=== PATIENT | male | born 1950 | race Two or more races ===

== ENCOUNTER 2024-06-09 12:12 | Inpatient (IN) | payer MEDICARE, OTHER ==
[~2024-06-09] VITALS: Ht 167.6 cm; Wt 56.9 kg
[2024-06-09 12:46] LABS: BASOPHILS # (AUTO) 0.1 K/uL (0.0-0.2); BASOPHILS % (AUTO) 0.6 % (0.0-2.0); EOSINOPHILS % (AUTO) 0.3 % (0.0-6.0); HEMATOCRIT 41 % (39-51); HEMOGLOBIN 13.5 g/dL (13.5-17.5); LYMPHOCYTES # (AUTO) 0.5 K/uL (0.8-4.8); LYMPHOCYTES % (AUTO) 3.5 % (20.0-44.0); MEAN CORPUSCULAR HEMOGLOBIN 30 PG (26.0-33.0); MEAN CORPUSCULAR HGB CONC 33 g/dl (31.0-36.0); MEAN CORPUSCULAR VOLUME 90 fL (80-96); MONOCYTES # (AUTO) 0.6 K/uL (0.1-1.30); MONOCYTES % (AUTO) 4.3 % (2.0-12.0); NEUTROPHILS # (AUTO) 12.7 K/uL (1.8-8.9); NEUTROPHILS % (AUTO) 91.3 % (43.0-81.0); PLATELET COUNT (AUTO) 283 K/uL (150-450); RED BLOOD CELL COUNT(AUTO) 4.56 MIL/uL (4.5-6.0); RED CELL DISTRIBUTION WIDTH 13.8 % (11.5-15.0); WHITE BLOOD COUNT (AUTO) 13.9 K/uL (4.3-11.0)
[2024-06-09 13:07] LABS: CALCIUM, SERUM 10.6 mg/dL (8.5-10.1); CARBON DIOXIDE 24 mmol/L (21-32); CHLORIDE 97 mmol/L (98-107); CREATININE 1.3 mg/dL (0.6-1.3); GLUCOSE 131 mg/dL (74-106); POTASSIUM 4.6 mmol/L (3.5-5.1); SODIUM SERUM 135 mmol/L (136-145); UREA NITROGEN, BLOOD 21 mg/dL (7-18)
[2024-06-09 16:00] VITALS: BP 169/92; TEMP 98.1; O2SAT 98
[2024-06-09] MEDS ORDERED: MAG HYDROX/AL HYDROX/SIMETH 30 ML UDC PO PRN (16:00)
[2024-06-09] MEDS ORDERED: HYDROCODONE/APAP 5/325MG TABLET PO PRN (16:00)
[2024-06-09] MEDS ORDERED: ONDANSETRON HCL/PF 4 MG/2 ML VIAL IVP PRN (16:00)
[2024-06-09] MEDS ORDERED: HYDROCODONE/APAP 10/325MG TABLET PO PRN (16:00)
[2024-06-09] MEDS ORDERED: Z GUARD REMEDY 4 OZ OINT TP PRN (16:00)
[2024-06-09] MEDS ORDERED: MAGNESIUM HYDROXIDE 30 ML UDC PO PRN (16:00)
[2024-06-09] MEDS ORDERED: ACETAMINOPHEN 325 MG TABLET PO PRN (16:00)
[2024-06-09] MEDS ORDERED: CHOL500062 PO (16:12)
[2024-06-09] MEDS ORDERED: TACR1CAP7 PO (16:12)
[2024-06-09] MEDS ORDERED: LORA10TA7 PO (16:12)
[2024-06-09] MEDS ORDERED: DILT180C93 PO (16:12)
[2024-06-09] MEDS ORDERED: LOVA10TA PO (16:12)
[2024-06-09] MEDS ORDERED: DOCU100C36 PO (16:12)
[2024-06-09] MEDS ORDERED: PANT40TA49 PO (16:12)
[2024-06-09] MEDS ORDERED: FLUC150T5 PO (16:12)
[2024-06-09] MEDS ORDERED: [UNRECOGNIZED DRUG - OTHER] PO (16:12)
[2024-06-09] MEDS ORDERED: SODI650T PO (16:12)
[2024-06-09] MEDS ORDERED: PRED5TAB PO (16:12)
[2024-06-09] MEDS ORDERED: AMLO-212 PO (16:12)
[2024-06-09] MEDS ORDERED: CARV25TA2 PO (16:12)
[2024-06-09] MEDS ORDERED: IPRATROPIUM NEB FS 0.5 MG/2.5 ML AMPUL.NEB NEB PRN (17:00)
[2024-06-09] MEDS ORDERED: LORATADINE 10 MG TABLET PO PRN (17:00)
[2024-06-09] MEDS ORDERED: ALBUTEROL FS 2.5 MG/0.5 ML VIAL.NEB NEB PRN (17:00)
[2024-06-09] MEDS ORDERED: TACROLIMUS ANHYDROUS 1 MG CAPSULE PO SCH (17:00)
[2024-06-09 18:00] VITALS: BP 133/56; TEMP 96.8; O2SAT 97
[2024-06-09] MEDS: SODIUM BICARBONATE 650 MG TABLET PO SCH (18:26)
[2024-06-09] MEDS: CARVEDILOL 12.5 MG TABLET PO SCH (18:27)
[2024-06-09] MEDS: AMLODIPINE BESYLATE 5 MG TABLET PO SCH (18:28)
[2024-06-09] MEDS: ENOXAPARIN SODIUM 40 MG/0.4 ML DISP.SYRIN SQ SCH (18:29)
[2024-06-09 20:00] VITALS: BP 132/62; TEMP 97.9; O2SAT 98
[2024-06-09] MEDS: IV D5/0.45 NACL 1,000 ML IV PRN (20:37)
[2024-06-09] MEDS: DOCUSATE SODIUM 100 MG CAPSULE PO SCH (21:16)
[2024-06-09] MEDS: ATORVASTATIN 10 MG TABLET PO SCH (21:16)
[2024-06-09] MEDS ORDERED: ZOLPIDEM TARTRATE 5 MG TABLET PO PRN (22:00)
[2024-06-10] VITALS: BP 125/59; TEMP 97.7; O2SAT 97
[2024-06-10 04:00] VITALS: BP 126/59; TEMP 97.7; O2SAT 95
[2024-06-10 07:50] LABS: BASOPHILS # (AUTO) 0.1 K/uL (0.0-0.2); BASOPHILS % (AUTO) 0.6 % (0.0-2.0); EOSINOPHILS # (AUTO) 0.2 K/uL (0.0-0.7); EOSINOPHILS % (AUTO) 2.3 % (0.0-6.0); HEMATOCRIT 38 % (39-51); HEMOGLOBIN 12.6 g/dL (13.5-17.5); LYMPHOCYTES # (AUTO) 0.7 K/uL (0.8-4.8); LYMPHOCYTES % (AUTO) 7.4 % (20.0-44.0); MEAN CORPUSCULAR HEMOGLOBIN 29 PG (26.0-33.0); MEAN CORPUSCULAR HGB CONC 33 g/dl (31.0-36.0); MEAN CORPUSCULAR VOLUME 88 fL (80-96); MONOCYTES # (AUTO) 1.1 K/uL (0.1-1.30); MONOCYTES % (AUTO) 12.4 % (2.0-12.0); NEUTROPHILS % (AUTO) 77.3 % (43.0-81.0); PLATELET COUNT (AUTO) 269 K/uL (150-450); RED BLOOD CELL COUNT(AUTO) 4.33 MIL/uL (4.5-6.0); RED CELL DISTRIBUTION WIDTH 13.4 % (11.5-15.0); WHITE BLOOD COUNT (AUTO) 9.1 K/uL (4.3-11.0)
[2024-06-10 08:00] VITALS: BP_SYST 129; BP_DIAS 60; BP_DIAS 69; TEMP 97.6; O2SAT 96
[2024-06-10 08:18] LABS: CALCIUM, SERUM 9.7 mg/dL (8.5-10.1); CARBON DIOXIDE 31 mmol/L (21-32); CHLORIDE 100 mmol/L (98-107); GLUCOSE 105 mg/dL (74-106); MAGNESIUM 1.6 mg/dL (1.8-2.4); PHOSPHORUS 3.2 mg/dL (2.5-4.9); POTASSIUM 4.1 mmol/L (3.5-5.1); SODIUM SERUM 135 mmol/L (136-145); UREA NITROGEN, BLOOD 18 mg/dL (7-18)
[2024-06-10] MEDS: PANTOPRAZOLE 40 MG TABLET.DR PO SCH (08:18)
[2024-06-10] MEDS: TACROLIMUS ANHYDROUS 0.5 MG CAPSULE PO SCH (08:41)
[2024-06-10] MEDS: CHOLECALCIFEROL 1,000 UNIT TABLET (VIT D3) PO SCH (08:42)
[2024-06-10] MEDS: predniSONE 5 MG TABLET PO SCH (08:42)
[2024-06-10] MEDS: DILTIAZEM HCL CD 180 MG PO SCH (08:42)
[2024-06-10] MEDS ORDERED: PANTOPRAZOLE 40 MG TABLET.DR PO SCH (09:00)
[2024-06-10] MEDS ORDERED: FLUCONAZOLE (100 MG) 100 MG TABLET PO SCH (09:00)
[2024-06-10 09:02] LABS: CHOLESTEROL 175 mg/dL (<200); HDL CHOLESTEROL 63 mg/dL (40-60); LDL 96 mg/dL (0-99); TRIGLYCERIDES 87 mg/dL (30-150)
[2024-06-10] MEDS: MAGNESIUM OXIDE 400 MG TABLET PO ONE (09:35)
[2024-06-10 12:00] VITALS: BP 126/57; TEMP 98.2; O2SAT 97
[2024-06-10] MEDS: IV NS 0.9% 1,000 ML IV ONE (13:16)
[2024-06-10 16:00] VITALS: BP 126/52; TEMP 97.7; O2SAT 96
[2024-06-10 20:00] VITALS: BP 134/56; TEMP 98.2; O2SAT 97
[2024-06-11] VITALS: BP 116/61; TEMP 98.4; O2SAT 95
[2024-06-11 04:00] VITALS: BP 130/59; TEMP 98.2; O2SAT 97
[2024-06-11 07:53] LABS: BASOPHILS % (AUTO) 0.3 % (0.0-2.0); EOSINOPHILS # (AUTO) 0.3 K/uL (0.0-0.7); EOSINOPHILS % (AUTO) 2.4 % (0.0-6.0); HEMATOCRIT 39 % (39-51); HEMOGLOBIN 12.6 g/dL (13.5-17.5); LYMPHOCYTES # (AUTO) 0.6 K/uL (0.8-4.8); LYMPHOCYTES % (AUTO) 5.4 % (20.0-44.0); MEAN CORPUSCULAR HEMOGLOBIN 29 PG (26.0-33.0); MEAN CORPUSCULAR HGB CONC 32 g/dl (31.0-36.0); MEAN CORPUSCULAR VOLUME 88 fL (80-96); MONOCYTES # (AUTO) 1.2 K/uL (0.1-1.30); MONOCYTES % (AUTO) 11.8 % (2.0-12.0); NEUTROPHILS # (AUTO) 8.3 K/uL (1.8-8.9); NEUTROPHILS % (AUTO) 80.1 % (43.0-81.0); PLATELET COUNT (AUTO) 276 K/uL (150-450); RED BLOOD CELL COUNT(AUTO) 4.43 MIL/uL (4.5-6.0); RED CELL DISTRIBUTION WIDTH 13.6 % (11.5-15.0); WHITE BLOOD COUNT (AUTO) 10.4 K/uL (4.3-11.0)
[2024-06-11 08:00] VITALS: BP 127/58; TEMP 97.9; O2SAT 97
[2024-06-11 08:07] LABS: ALANINE AMINOTRANSFERASE 13 U/L (12-78); ALBUMIN 2.9 g/dL (3.4-5.0); ALKALINE PHOSPHATASE 70 U/L (46-116); ASPARTATE AMINOTRANSFERASE 14 U/L (15-37); BILIRUBIN,TOTAL 0.4 mg/dL (0.2-1.0); CALCIUM, SERUM 9.1 mg/dL (8.5-10.1); CARBON DIOXIDE 26 mmol/L (21-32); CHLORIDE 101 mmol/L (98-107); GLUCOSE 94 mg/dL (74-106); MAGNESIUM 1.5 mg/dL (1.8-2.4); POTASSIUM 3.9 mmol/L (3.5-5.1); SODIUM SERUM 135 mmol/L (136-145); TOTAL PROTEIN, SERUM 7.1 g/dL (6.4-8.2); UREA NITROGEN, BLOOD 12 mg/dL (7-18)
[2024-06-11] MEDS: MAGNESIUM OXIDE 400 MG TABLET PO ONE (09:37)
[2024-06-11 12:00] VITALS: BP 133/67; TEMP 98.2; O2SAT 99
[2024-06-11 16:00] VITALS: BP 122/56; TEMP 98.1; O2SAT 97
[2024-06-11 20:00] VITALS: BP 129/55; TEMP 98.8; O2SAT 100
[2024-06-12] VITALS: BP 125/60; TEMP 98.4; O2SAT 96
[2024-06-12 04:00] VITALS: BP 128/58; TEMP 98.4; O2SAT 95
[2024-06-12 08:00] VITALS: BP 132/60; TEMP 97.2; O2SAT 96
[2024-06-12 08:13] LABS: BASOPHILS # (AUTO) 0.1 K/uL (0.0-0.2); BASOPHILS % (AUTO) 1.1 % (0.0-2.0); EOSINOPHILS # (AUTO) 0.3 K/uL (0.0-0.7); EOSINOPHILS % (AUTO) 2.9 % (0.0-6.0); HEMATOCRIT 40 % (39-51); HEMOGLOBIN 13.1 g/dL (13.5-17.5); LYMPHOCYTES # (AUTO) 0.7 K/uL (0.8-4.8); LYMPHOCYTES % (AUTO) 6.4 % (20.0-44.0); MEAN CORPUSCULAR HEMOGLOBIN 29 PG (26.0-33.0); MEAN CORPUSCULAR HGB CONC 33 g/dl (31.0-36.0); MEAN CORPUSCULAR VOLUME 88 fL (80-96); MONOCYTES # (AUTO) 1.3 K/uL (0.1-1.30); MONOCYTES % (AUTO) 12.7 % (2.0-12.0); NEUTROPHILS # (AUTO) 7.9 K/uL (1.8-8.9); NEUTROPHILS % (AUTO) 76.9 % (43.0-81.0); PLATELET COUNT (AUTO) 259 K/uL (150-450); RED BLOOD CELL COUNT(AUTO) 4.56 MIL/uL (4.5-6.0); RED CELL DISTRIBUTION WIDTH 13.7 % (11.5-15.0); WHITE BLOOD COUNT (AUTO) 10.3 K/uL (4.3-11.0)
[2024-06-12 08:21] LABS: ALANINE AMINOTRANSFERASE 9 U/L (12-78); ALBUMIN 2.8 g/dL (3.4-5.0); ALKALINE PHOSPHATASE 75 U/L (46-116); ASPARTATE AMINOTRANSFERASE 13 U/L (15-37); BILIRUBIN,TOTAL 0.5 mg/dL (0.2-1.0); CARBON DIOXIDE 26 mmol/L (21-32); CHLORIDE 100 mmol/L (98-107); GLUCOSE 87 mg/dL (74-106); MAGNESIUM 1.8 mg/dL (1.8-2.4); PHOSPHORUS 3.4 mg/dL (2.5-4.9); POTASSIUM 3.9 mmol/L (3.5-5.1); SODIUM SERUM 134 mmol/L (136-145); TOTAL PROTEIN, SERUM 7.3 g/dL (6.4-8.2); UREA NITROGEN, BLOOD 12 mg/dL (7-18)
[2024-06-12 12:45] VITALS: BP 121/58; TEMP 97.9; O2SAT 94
[2024-06-12 16:45] VITALS: BP 141/60; TEMP 97.6; O2SAT 98
[2024-06-12 20:00] VITALS: BP 131/59; TEMP 98.4
[2024-06-13] VITALS: BP 131/57; TEMP 98.4; O2SAT 97
[2024-06-13 04:00] VITALS: BP 125/56; TEMP 98; O2SAT 94
[2024-06-13 08:00] VITALS: BP 120/68; TEMP 98.2; O2SAT 98
[2024-06-13 12:00] VITALS: BP 140/64; TEMP 97.7; O2SAT 97
[2024-06-13 16:20] VITALS: BP 134/54; TEMP 98.2; O2SAT 99
[2024-06-13 20:00] VITALS: BP 136/62; TEMP 97.9; O2SAT 96
[2024-06-14] VITALS: BP 133/63; TEMP 97.9; O2SAT 98
[2024-06-14 04:00] VITALS: BP 134/58; TEMP 98.4; O2SAT 95
[2024-06-14 08:00] VITALS: BP 135/61; TEMP 98.1; O2SAT 98
[2024-06-14 12:00] VITALS: BP 134/52; TEMP 97.9; O2SAT 97
[2024-06-14 16:00] VITALS: BP 130/56; TEMP 97.7; O2SAT 98
[2024-06-14 20:00] VITALS: BP 130/56; TEMP 97.9; O2SAT 94
[2024-06-15] VITALS: BP 132/58; TEMP 97.9; O2SAT 94
[2024-06-15 04:50] VITALS: BP 136/63; TEMP 98.1; O2SAT 96
[2024-06-15 08:00] VITALS: BP 137/63; TEMP 98.3; O2SAT 95
[2024-06-15 12:00] VITALS: BP 119/56; TEMP 97.8; O2SAT 95
[2024-06-15 15:29] LABS: ALBUMIN 2.9 g/dL (3.4-5.0); BILIRUBIN,DIRECT 0.1 mg/dL (0.0-0.2); BILIRUBIN,TOTAL 0.6 mg/dL (0.2-1.0); TOTAL PROTEIN, SERUM 7.4 g/dL (6.4-8.2)
[2024-06-15 16:00] VITALS: BP 135/59; TEMP 97.9; O2SAT 95
[2024-06-15 20:00] VITALS: BP 124/52; TEMP 97.3; O2SAT 98
[2024-06-16 00:49] VITALS: BP 123/62; TEMP 97.3; O2SAT 99
[2024-06-16 04:15] VITALS: BP 131/60; TEMP 97.1; O2SAT 97
[2024-06-16 08:00] VITALS: BP 131/61; TEMP 97.7; O2SAT 98
[2024-06-16 08:46] LABS: BASOPHILS % (AUTO) 0.3 % (0.0-2.0); EOSINOPHILS # (AUTO) 0.2 K/uL (0.0-0.7); EOSINOPHILS % (AUTO) 2.1 % (0.0-6.0); HEMATOCRIT 40 % (39-51); HEMOGLOBIN 12.9 g/dL (13.5-17.5); LYMPHOCYTES # (AUTO) 0.6 K/uL (0.8-4.8); LYMPHOCYTES % (AUTO) 6.7 % (20.0-44.0); MEAN CORPUSCULAR HEMOGLOBIN 29 PG (26.0-33.0); MEAN CORPUSCULAR HGB CONC 32 g/dl (31.0-36.0); MEAN CORPUSCULAR VOLUME 89 fL (80-96); MONOCYTES # (AUTO) 1.2 K/uL (0.1-1.30); MONOCYTES % (AUTO) 14.6 % (2.0-12.0); NEUTROPHILS # (AUTO) 6.5 K/uL (1.8-8.9); NEUTROPHILS % (AUTO) 76.3 % (43.0-81.0); PLATELET COUNT (AUTO) 260 K/uL (150-450); RED CELL DISTRIBUTION WIDTH 13.3 % (11.5-15.0); WHITE BLOOD COUNT (AUTO) 8.5 K/uL (4.3-11.0)
[2024-06-16 09:02] LABS: ALANINE AMINOTRANSFERASE 20 U/L (12-78); ALBUMIN 2.9 g/dL (3.4-5.0); ALKALINE PHOSPHATASE 68 U/L (46-116); ASPARTATE AMINOTRANSFERASE 18 U/L (15-37); BILIRUBIN,TOTAL 0.5 mg/dL (0.2-1.0); CARBON DIOXIDE 27 mmol/L (21-32); CHLORIDE 100 mmol/L (98-107); CREATININE 0.9 mg/dL (0.6-1.3); GLUCOSE 95 mg/dL (74-106); MAGNESIUM 1.4 mg/dL (1.8-2.4); PHOSPHORUS 3.6 mg/dL (2.5-4.9); POTASSIUM 3.6 mmol/L (3.5-5.1); SODIUM SERUM 137 mmol/L (136-145); TOTAL PROTEIN, SERUM 7.2 g/dL (6.4-8.2); UREA NITROGEN, BLOOD 10 mg/dL (7-18)
[2024-06-16 15:35] LABS: HIV-1 p24 ANTIGEN NON REACTIVE (NONREACTIVE); HIV-1/2 ANTIBODY NON REACTIVE (NONREACTIVE)
[2024-06-16 16:00] VITALS: BP 128/61; TEMP 98.1; O2SAT 97
[2024-06-16 20:00] VITALS: BP 125/89; TEMP 99.1; O2SAT 100
[2024-06-17 04:00] VITALS: BP_SYST 110; BP_SYST 124; BP_DIAS 56; BP_DIAS 90; TEMP 98.2; TEMP 98.8; O2SAT 100; O2SAT 96
[2024-06-17 08:00] VITALS: BP 123/58; TEMP 97.3; O2SAT 97
[2024-06-17 10:10] LABS: HEPATITIS A AB, IgM Negative (Negative); HEPATITIS A AB, TOTAL Positive (Negative); HEPATITIS B CORE AB, IgM Negative (Negative); HEPATITIS B CORE AB, TOTAL Positive (Negative); HEPATITIS B SURFACE AB Reactive (.); HEPATITIS Be AG Negative (Negative)
[2024-06-17 16:00] VITALS: BP 130/51; TEMP 97.9; O2SAT 97
[2024-06-17 18:00] VITALS: BP 130/51; TEMP 97.9; O2SAT 97
[2024-06-17 20:00] VITALS: BP 115/56; TEMP 98.2; O2SAT 98
[2024-06-18 04:00] VITALS: BP 120/62; TEMP 98.6; O2SAT 98
[2024-06-18 12:00] VITALS: BP 117/64; TEMP 98.6; O2SAT 99
[2024-06-18 20:00] VITALS: BP 129/58; TEMP 97.9; O2SAT 99
[2024-06-18] MEDS: GUAIFENESIN LA 600 MG TABLET.SA PO SCH (21:21)
[2024-06-19 04:00] VITALS: BP 129/63; TEMP 98.1; O2SAT 97
[2024-06-19 08:00] VITALS: BP 124/51; TEMP 98.1; O2SAT 97
[2024-06-19 12:00] VITALS: BP 120/60; TEMP 98.1; O2SAT 97
[2024-06-19 18:00] VITALS: BP 123/58; TEMP 98.3; O2SAT 96
[2024-06-19 20:00] VITALS: BP 124/52; TEMP 98.1; O2SAT 97
[2024-06-20 04:00] VITALS: BP 124/56; TEMP 98.6; O2SAT 100
[2024-06-20 08:35] LABS: ALANINE AMINOTRANSFERASE 11 U/L (12-78); ALBUMIN 2.7 g/dL (3.4-5.0); ALKALINE PHOSPHATASE 63 U/L (46-116); ASPARTATE AMINOTRANSFERASE 13 U/L (15-37); BASOPHILS % (AUTO) 0.4 % (0.0-2.0); BILIRUBIN,TOTAL 0.5 mg/dL (0.2-1.0); CARBON DIOXIDE 25 mmol/L (21-32); CHLORIDE 102 mmol/L (98-107); EOSINOPHILS # (AUTO) 0.2 K/uL (0.0-0.7); EOSINOPHILS % (AUTO) 1.9 % (0.0-6.0); GLUCOSE 90 mg/dL (74-106); HEMATOCRIT 39 % (39-51); HEMOGLOBIN 12.5 g/dL (13.5-17.5); LYMPHOCYTES # (AUTO) 0.5 K/uL (0.8-4.8); LYMPHOCYTES % (AUTO) 6.2 % (20.0-44.0); MAGNESIUM 1.5 mg/dL (1.8-2.4); MEAN CORPUSCULAR HEMOGLOBIN 29 PG (26.0-33.0); MEAN CORPUSCULAR HGB CONC 32 g/dl (31.0-36.0); MEAN CORPUSCULAR VOLUME 92 fL (80-96); MONOCYTES # (AUTO) 1.3 K/uL (0.1-1.30); MONOCYTES % (AUTO) 15.9 % (2.0-12.0); NEUTROPHILS % (AUTO) 75.6 % (43.0-81.0); PHOSPHORUS 3.7 mg/dL (2.5-4.9); PLATELET COUNT (AUTO) 211 K/uL (150-450); POTASSIUM 3.5 mmol/L (3.5-5.1); RED BLOOD CELL COUNT(AUTO) 4.26 MIL/uL (4.5-6.0); RED CELL DISTRIBUTION WIDTH 14.4 % (11.5-15.0); SODIUM SERUM 136 mmol/L (136-145); TOTAL PROTEIN, SERUM 6.9 g/dL (6.4-8.2); UREA NITROGEN, BLOOD 11 mg/dL (7-18)
[2024-06-20 11:10] LABS: EOSINOPHILS % (MANUAL) 2 % (0-4); LYMPHOCYTES % (MANUAL) 13 % (16-48); MONOCYTES % (MANUAL) 16 % (0-11.0); NEUTROPHILS % (MANUAL) 69 (42-76); PLATELET ESTIMATE ADEQUATE
[2024-06-20] MEDS: MAGNESIUM OXIDE 400 MG TABLET PO ONE (11:29)
[2024-06-20 12:00] VITALS: BP 130/68; TEMP 97.9; O2SAT 97
[2024-06-20 20:00] VITALS: BP 127/53; TEMP 97.7; O2SAT 97
[2024-06-21 04:00] VITALS: BP 130/59; TEMP 98.1; O2SAT 97
[2024-06-21 07:52] LABS: BASOPHILS % (AUTO) 0.6 % (0.0-2.0); EOSINOPHILS # (AUTO) 0.2 K/uL (0.0-0.7); HEMATOCRIT 36 % (39-51); LYMPHOCYTES # (AUTO) 0.6 K/uL (0.8-4.8); LYMPHOCYTES % (AUTO) 7.1 % (20.0-44.0); MEAN CORPUSCULAR HEMOGLOBIN 29 PG (26.0-33.0); MEAN CORPUSCULAR HGB CONC 33 g/dl (31.0-36.0); MEAN CORPUSCULAR VOLUME 87 fL (80-96); MONOCYTES # (AUTO) 1.1 K/uL (0.1-1.30); MONOCYTES % (AUTO) 13.5 % (2.0-12.0); NEUTROPHILS % (AUTO) 76.8 % (43.0-81.0); PLATELET COUNT (AUTO) 226 K/uL (150-450); RED BLOOD CELL COUNT(AUTO) 4.15 MIL/uL (4.5-6.0); RED CELL DISTRIBUTION WIDTH 13.8 % (11.5-15.0); WHITE BLOOD COUNT (AUTO) 7.8 K/uL (4.3-11.0)
[2024-06-21 08:00] VITALS: BP 133/60; TEMP 98.1; O2SAT 98
[2024-06-21 08:07] LABS: ALANINE AMINOTRANSFERASE 14 U/L (12-78); ALBUMIN 2.8 g/dL (3.4-5.0); ALKALINE PHOSPHATASE 66 U/L (46-116); ASPARTATE AMINOTRANSFERASE 12 U/L (15-37); BILIRUBIN,TOTAL 0.4 mg/dL (0.2-1.0); CALCIUM, SERUM 8.9 mg/dL (8.5-10.1); CARBON DIOXIDE 28 mmol/L (21-32); CHLORIDE 104 mmol/L (98-107); CREATININE 0.9 mg/dL (0.6-1.3); GLUCOSE 93 mg/dL (74-106); MAGNESIUM 1.4 mg/dL (1.8-2.4); POTASSIUM 3.5 mmol/L (3.5-5.1); SODIUM SERUM 140 mmol/L (136-145); TOTAL PROTEIN, SERUM 6.9 g/dL (6.4-8.2); UREA NITROGEN, BLOOD 8 mg/dL (7-18)
[2024-06-21] MEDS: Magnesium 1GM/D5W 100ML PREMIX 100 ML IV SCH (10:50)
[2024-06-21 16:00] VITALS: BP 130/52; TEMP 97.2; O2SAT 99
[2024-06-21] MEDS ORDERED: GUAIFENESIN LA 600 MG TABLET.SA PO SCH (18:00)
[2024-06-21 20:00] VITALS: BP 124/52; TEMP 97.9; O2SAT 96
[2024-06-21 20:03] VITALS: BP 100/65; TEMP 98.4; O2SAT 97
[2024-06-21] MEDS: GUAIFENESIN LA 600 MG TABLET.SA PO SCH (21:07)
[2024-06-22] VITALS: BP 100/65; TEMP 98.4; O2SAT 97
[2024-06-22 04:00] VITALS: BP 130/60; TEMP 97.9; O2SAT 95
[2024-06-22 07:08] LABS: CALCIUM, SERUM 8.7 mg/dL (8.5-10.1); CARBON DIOXIDE 25 mmol/L (21-32); CHLORIDE 103 mmol/L (98-107); CREATININE 0.9 mg/dL (0.6-1.3); GLUCOSE 96 mg/dL (74-106); MAGNESIUM 1.9 mg/dL (1.8-2.4); POTASSIUM 3.3 mmol/L (3.5-5.1); SODIUM SERUM 137 mmol/L (136-145); UREA NITROGEN, BLOOD 7 mg/dL (7-18)
[2024-06-22 08:00] VITALS: BP 136/60; TEMP 97.7; O2SAT 98
[2024-06-22] MEDS: POTASSIUM CHLORIDE 10 MEQ TABLET.SA PO SCH (11:24)
[2024-06-22 13:28] LABS: ALBUMIN 2.8 g/dL (3.4-5.0); BILIRUBIN,DIRECT 0.1 mg/dL (0.0-0.2); BILIRUBIN,TOTAL 0.4 mg/dL (0.2-1.0)
[2024-06-22 16:00] VITALS: BP 129/55; TEMP 97.5; O2SAT 98
[2024-06-22] MEDS: RIFAMPIN 300 MG CAPSULE PO SCH (16:34)
[2024-06-22] MEDS: CLARITHROMYCIN 500 MG TABLET PO SCH (16:34)
[2024-06-22] MEDS: ETHAMBUTOL HCL (400 MG) 400 MG TABLET PO SCH (16:35)
[2024-06-22 20:00] VITALS: BP 96/60; TEMP 98.1; O2SAT 97
[2024-06-23] VITALS: BP 100/65; TEMP 98.4; O2SAT 97
[2024-06-23 04:00] VITALS: BP 107/79; TEMP 97.7; O2SAT 99
[2024-06-23 08:00] VITALS: BP 130/56; TEMP 97.3; O2SAT 98
[2024-06-23 09:12] LABS: CALCIUM, SERUM 8.6 mg/dL (8.5-10.1); CARBON DIOXIDE 31 mmol/L (21-32); CHLORIDE 103 mmol/L (98-107); CREATININE 0.9 mg/dL (0.6-1.3); GLUCOSE 96 mg/dL (74-106); POTASSIUM 3.6 mmol/L (3.5-5.1); SODIUM SERUM 137 mmol/L (136-145); UREA NITROGEN, BLOOD 7 mg/dL (7-18)
[2024-06-23 16:00] VITALS: BP 124/52; TEMP 97.3; O2SAT 98
[2024-06-23 18:00] VITALS: BP 124/52; TEMP 97.3; O2SAT 98
[2024-06-24] VITALS: BP 130/63; TEMP 97.7; O2SAT 97
[2024-06-24 07:36] LABS: CALCIUM, SERUM 8.6 mg/dL (8.5-10.1); CARBON DIOXIDE 29 mmol/L (21-32); CHLORIDE 102 mmol/L (98-107); CREATININE 0.9 mg/dL (0.6-1.3); GLUCOSE 92 mg/dL (74-106); POTASSIUM 3.8 mmol/L (3.5-5.1); SODIUM SERUM 138 mmol/L (136-145); UREA NITROGEN, BLOOD 8 mg/dL (7-18)
[2024-06-24 08:00] VITALS: BP 128/64; TEMP 97.9; O2SAT 99
[2024-06-24 16:00] VITALS: BP 125/54; TEMP 98.1; O2SAT 98
[2024-06-24 18:00] VITALS: BP 125/54; TEMP 98.1; O2SAT 98
[2024-06-24 20:00] VITALS: BP 122/55; TEMP 98.8; O2SAT 97
[2024-06-25 00:16] VITALS: BP 122/55; TEMP 98.8; O2SAT 97
[2024-06-25 04:00] VITALS: BP 125/59; TEMP 98.7; O2SAT 98
[2024-06-25 07:58] LABS: BILIRUBIN,DIRECT 0.2 mg/dL (0.0-0.2); BILIRUBIN,TOTAL 0.5 mg/dL (0.2-1.0); TOTAL PROTEIN, SERUM 7.4 g/dL (6.4-8.2)
[2024-06-25 08:41] LABS: CALCIUM, SERUM 9.3 mg/dL (8.5-10.1); CARBON DIOXIDE 28 mmol/L (21-32); CHLORIDE 104 mmol/L (98-107); GLUCOSE 87 mg/dL (74-106); SODIUM SERUM 139 mmol/L (136-145); UREA NITROGEN, BLOOD 10 mg/dL (7-18)
[2024-06-25] MEDS ORDERED: RIFA300C4 PO (16:42)
[2024-06-25] MEDS ORDERED: CLAR-45 PO (16:42)
[2024-06-25] MEDS ORDERED: ETHA400T8 PO ×2 (16:42→16:44)
[2024-06-25] MEDS ORDERED: GUAI600T53 PO (16:42)
[2024-06-25] MEDS ORDERED: PANT40TA49 PO (16:42)
[2024-06-25] MEDS ORDERED: TACR0.5C PO (16:43)
[2024-06-25 20:00] VITALS: BP 134/63; TEMP 98.8; O2SAT 97
[2024-06-26 04:48] VITALS: BP 136/59; TEMP 99; O2SAT 96
[2024-06-26 08:10] LABS: CALCIUM, SERUM 8.7 mg/dL (8.5-10.1); CARBON DIOXIDE 29 mmol/L (21-32); CHLORIDE 100 mmol/L (98-107); CREATININE 0.9 mg/dL (0.6-1.3); GLUCOSE 92 mg/dL (74-106); POTASSIUM 3.7 mmol/L (3.5-5.1); SODIUM SERUM 134 mmol/L (136-145); UREA NITROGEN, BLOOD 8 mg/dL (7-18)
[2024-06-26 09:36] VITALS: BP 127/63
== END 2024-06-26 15:25 | disposition home or self-care (01) | DRG 178 ==
LOC: ER 12:12 → TELE1 13:14 → MEDSG1 06-15 12:29
PROVIDERS: ATTEND Internal Medicine
DX: A31.0 Pulmonary mycobacterial infection (principal); D84.821 Immunodeficiency due to drugs; E87.1 Hypo-osmolality and hyponatremia; I48.20 Chronic atrial fibrillation, unspecified; Z94.0 Kidney transplant status; J16.8 Pneumonia due to other specified infectious organisms; K21.9 Gastro-esophageal reflux disease without esophagitis; I10 Essential (primary) hypertension; D64.9 Anemia, unspecified; E78.5 Hyperlipidemia, unspecified; E83.52 Hypercalcemia; M89.8X9 Other specified disorders of bone, unspecified site; Z77.090 Contact with and (suspected) exposure to asbestos; Z78.9 Other specified health status; Z79.60 Long term (current) use of unspecified immunomodulators and immunosuppressants
CPT/HCPCS: 36415; 71045-TC; 71250-TC; 80048-TC; 80053-TC; 80061-TC; 80076-TC; 83735-TC; 84100-TC; 84443-TC; 84484-TC; 85025-TC; 86140-TC; 86480; 86704; 86705; 86706; 86709; 86709-TC; 86803; 87081-TC; 87102-TC; 87206-TC; 87340; 87350; 87806; 87899; 93307-TC; 94640-TC; 97110-TC; 97112-TC; 97116-TC; 97164; 97530-TC; A4223; G0378; J1650; J3475; J3490; J7030; J7050; J7507; J7512